=== PATIENT | male | born 2000 | race Hispanic/Latino ===

== ENCOUNTER 2020-06-02 20:27 | Emergency (ER) | payer SELFPAY ==
[~2020-06-02] VITALS: Ht 175.3 cm; Wt 54.4 kg
[2020-06-02] MEDS ORDERED: PREDNISONE 20 MG TAB PO STA (21:39)
[2020-06-02] MEDS ORDERED: DIPHENHYDRAMINE HCL 25 MG CAP PO STA (21:39)
[2020-06-02] MEDS ORDERED: FAMOTIDINE 20 MG TAB PO ONE (21:45)
[2020-06-02] MEDS ORDERED: EPINEPHRINE HCL 1:1000 1ML 1 MG/ML AMP INJ ONE (21:45)
[2020-06-02] MEDS ORDERED: FAMOTIDINE 20 MG TAB ONE (21:59)
[2020-06-02] MEDS ORDERED: EPINEPHRINE HCL 1:1000 1ML 1 MG/ML AMP ONE (21:59)
[2020-06-02] MEDS ORDERED: DIPHENHYDRAMINE HCL 25 MG CAP ONE (21:59)
[2020-06-02] MEDS ORDERED: METHYLPREDNISOLONE SOD SUCC 125 MG/2ML VIAL ONE (21:59)
[2020-06-02] MEDS ORDERED: METHYLPREDNISOLONE SOD SUCC 125 MG/2ML VIAL IM ONE (22:15)
[2020-06-02 22:42] VITALS: BP 120/70
== END 2020-06-02 22:42 | disposition home or self-care (01) ==
LOC: FSED 20:41
DX: R21 Rash and other nonspecific skin eruption (principal); T78.40XA Allergy, unspecified, initial encounter
CPT/HCPCS: 96372; 99282; J0171; J2930